=== PATIENT | male | born 1960 | race Two or more races ===

== ENCOUNTER 2025-05-14 13:59 | Outpatient (CLI) | payer OTHER | END 2025-05-14 14:14 | disposition home or self-care (01) | LOC: RAD 13:59 | PROVIDERS: ATTEND Orthopaedic Surgery | DX: M25.562 Pain in left knee (principal) ==

== ENCOUNTER 2025-07-15 13:54 | Outpatient (CLI) | payer OTHER | END 2025-07-15 14:05 | disposition home or self-care (01) | LOC: MRI 13:54 | PROVIDERS: ATTEND Orthopaedic Surgery | DX: M25.562 Pain in left knee (principal); M17.12 Unilateral primary osteoarthritis, left knee; M23.92 Unspecified internal derangement of left knee | CPT/HCPCS: 73721 ==